=== PATIENT | male | born 1980 | race Caucasian/White ===

== ENCOUNTER 2016-10-28 10:31 | Inpatient (IN) | payer OTHER ==
[2016-10-28 10:56] VITALS: BMI 25.9
--- NOTE | 2016-10-28 14:47 | HP ---
CIWA Score - CIWA Score Nausea/Vomitin Muscle Tremors: 3 Anxiety: 3 Agitation: 2 Paroxysmal Sweats: 1-Minimal Palms Moist Orientation: 0-Oriented Tacttile Disturbances: 2-Mild Itch/Numbness/Burn Auditory Disturbances: 2-Mild Harshness/Frighten Visual Disturbances: 2-Mild Sensitivity Headache: 2-Mild CIWA-Ar Total Score: 20 Admission ROS BHS - HPI Chief Complaint: I NEED HELP TO STOP USING XANAX,COCAINE,MARIJUANA Allergies/Adverse Reactions: Allergies Allergy/AdvReac Type Severity Reaction Status Date / Time No Known Allergies Allergy Verified 10/28/16 12:02 History of Present Illness: THIS 35 YEARS OLD MALE WITH XANAX,COCAINE AND MARIJUANA DEPENDENCE,WITHDRAWAL SYMPTOM,LAST DETOX 2014 MULTIPLE ADMISSIONS TO DETOX ANXIETY AND DEPRESSION LONGEST PERIOD SOBRIETY 7 MONTHS WEIGHT LOSS MMTP 80 MGS/DAY,LAST MEDICATED 10/28/16 Exam Limitations: No Limitations - Ebola screening Have you been sick,other than usual withdrawal symptoms: No - Review of Systems Constitutional: Loss of Appetite, Malaise, Night Sweats, Changes in sleep, Weakness, Unintentional Wgt. Loss EENT: reports: Nose Congestion Respiratory: reports: No Symptoms reported Cardiac: reports: No Symptoms Reported GI: reports: No Symptoms Reported : reports: No Symptoms Reported Musculoskeletal: reports: Back Pain, Muscle Pain Integumentary: reports: Dryness Neuro: reports: Tremors Endocrine: reports: No Symptoms Reported Hematology: reports: No Symptoms Reported Psychiatric: reports: Anxious, Depressed Other Systems: Reviewed and Negative Patient History - Patient Medical History Hx Anemia: No Hx Asthma: No Hx Chronic Obstructive Pulmonary Disease (COPD): No Hx Cancer: No Hx Cardiac Disorders: No Hx Congestive Heart Failure: No Hx Hypertension: Yes (ON MED) Hx Hypercholesterolemia: No Hx Pacemaker: No HX Cerebrovascular Accident: No Hx Seizures: Yes (drug related x3-last episode was in 07/2016) Hx Dementia: No Hx Diabetes: No Hx Gastrointestinal Disorders: No Hx Liver Disease: No Hx Genitourinary Disorders: No Hx Sexually Transmitted Disorders: No Hx Renal Disease (ESRD): No Hx Thyroid Disease: No Hx Human Immunodeficiency Virus (HIV): Yes (positive in 2006 NON COMPLIANCE) Hx Hepatitis C: Yes Hx Depression: Yes (ANXIETY) Hx Suicide Attempt: No Hx Bipolar Disorder: No Hx Schizophrenia: No Other Medical History: NO SUICIDAL,NI HOMICIDAL - Patient Surgical History Past Surgical History: Yes Hx Neurologic Surgery: No Hx Cataract Extraction: No Hx Cardiac Surgery: No Hx Lung Surgery: No Hx Breast Surgery: No Hx Breast Biopsy: No Hx Abdominal Surgery: No Hx Appendectomy: Yes () Hx Cholecystectomy: No Hx Genitourinary Surgery: No Hx Section: No Hx Orthopedic Surgery: No Other Surgical History: 1999-partial thyroidectomy-hyperplasia,hypercalcemia Anesthesia Reaction: No - PPD History Previous Implant?: Yes Documented Results: Positive w/o proof Implanted On Prior [facility] Admission?: Yes Date: 12/16/11 Results: 0 mm - Smoking Cessation Smoking history: Current every day smoker Have you smoked in the past 12 months: Yes Aproximately how many cigarettes per day: 8 Cigars Per Day: 0 Hx Chewing Tobacco Use: No Initiated information on smoking cessation: Yes 'Breaking Loose' booklet given: 10/28/16 - Substance & Tx. History Hx Alcohol Use: No Hx Substance Use: Yes Substance Use Type: Cocaine, Marijuana, Tranquilizers - Substances Abused Cocaine Route: Injection Frequency: 3-6 times per week Amount used: $60 Age of first use: 16 Date of Last Use: 10/27/16 Xanax Route: Oral Frequency: Daily Amount used: 6-8 mg. Age of first use: 18 Date of Last Use: 10/28/16 Marijuana Route: Smoking Frequency: 3-6 times per week Amount used: $10 Age of first use: 13 Date of Last Use: 10/27/16 Family Disease History - Family Disease History Family Disease History: Other: Father (ALCOHOL), Mother (ALCOHOL), Brother ( ALCOHOL), Sister (ALCOHOL) Admission Physical Exam S - Vital Signs Vital Signs: Vital Signs - 24 hr 10/28/16 10:54 Temperature 97.7 F Pulse Rate 84 Respiratory 18 Rate Blood Pressure 134/71 - Physical General Appearance: Yes: Moderate Distress, Tremorous, Irritable, Sweating, Anxious HEENTM: Yes: Within Normal Limits Respiratory: Yes: Lungs Clear Neck: Yes: Within Normal Limits Breast: Yes: Within Normal Limits Cardiology: Yes: Within Normal Limits, Regular Rhythm, Regular Rate, S1, S2 Abdominal: Yes: Normal Bowel Sounds, Non Tender, Flat, Soft, Organomegaly Genitourinary: Yes: Within Normal Limits Back: Yes: Muscle Spasm Musculoskeletal: Yes: Back pain, Muscle Pain Extremities: Yes: Tremors Neurological: Yes: clinical orthoptist II-XII NML intact, Fully Oriented, Alert, Motor Strength 5/5 Integumentary: Yes: Dry, Track [place], Other (CELLULITIS BOTH FOREARMS AND LEGS) Lymphatic: Yes: Within Normal Limits - Diagnostic (1) Uncomplicated sedative, hypnotic or anxiolytic withdrawal Current Visit: Yes Status: Acute (2) Cocaine dependence Current Visit: Yes Status: Acute (3) Cannabis dependence Current Visit: Yes Status: Acute (4) Methadone maintenance therapy patient Current Visit: Yes Status: Acute (5) HIV (human immunodeficiency virus infection) Current Visit: Yes Status: Acute (6) Hepatitis C Current Visit: Yes Status: Acute (7) Anxiety and depression Current Visit: Yes Status: Acute (8) Weight loss Current Visit: Yes Status: Acute (9) Positive PPD, treated Current Visit: Yes Status: Acute Cleared for Admission [facility] - Detox or Rehab [facility] Level of Care: Medically Managed Detox Regimen/Protocol: Valium S Breath Alcohol Content Breath Alcohol Content: 0 Urine Drug Screen - Results Drug Screen Negative: No Urine Drug Screen Results: THC-Marijuana, TEZ-Cocaine, BZO-Benzodiazepines, MTD- Methadone, TCA-Tricyclic Antidepress
[2016-10-28] MEDS ORDERED: NICOTINE POLACRILEX 2 MG GUM BUC PRN (15:02)
[2016-10-28] MEDS ORDERED: MENTHOL/PHENOL 1 EACH UD MM PRN (15:02)
[2016-10-28] MEDS ORDERED: LOPERAMIDE HCL 2 MG CAPSULE PO PRN (15:02)
[2016-10-28] MEDS ORDERED: MAGNESIUM CITRATE 300 ML BOTTLE PO PRN (15:02)
[2016-10-28] MEDS ORDERED: P-EPHED 60MG/TRIPROLIDI 2.5MG TABLET PO PRN (15:02)
[2016-10-28] MEDS ORDERED: guaiFENesin/D-METHORPHAN HB 10 ML UNIT-DOSE CUPS PO PRN (15:02)
[2016-10-28] MEDS ORDERED: MAG HYDROX/AL HYDROX/SIMETH 30 ML UNIT-DOSE CUP PO PRN (15:02)
[2016-10-28] MEDS ORDERED: IBUPROFEN 400 MG TABLET (FP) PO PRN (15:02)
[2016-10-28] MEDS ORDERED: ACETAMINOPHEN 325 MG TABLET (FP) PO PRN (15:02)
[2016-10-28] MEDS ORDERED: hydrOXYzine PAMOATE 50 MG CAPSULE (FP) PO PRN (15:02)
[2016-10-28] MEDS ORDERED: MAGNESIUM HYDROX 2400MG/30ML ORAL SUSPENSION 30 ML CUP PO PRN (15:02)
[2016-10-28] MEDS ORDERED: diazePAM 5 MG TABLET PO ONE (15:26)
[2016-10-28 19:27] LABS: URINE APPEARANCE CLEAR; URINE BILIRUBIN NEGATIVE (NEGATIVE); URINE BLOOD NEGATIVE (NEGATIVE); URINE COLOR LTYELLOW; URINE GLUCOSE (UA) NEGATIVE (NEGATIVE); URINE KETONE NEGATIVE (NEGATIVE); URINE LEUK ESTERASE NEGATIVE (NEGATIVE); URINE NITRITE NEGATIVE (NEGATIVE); URINE PROTEIN NEGATIVE (NEGATIVE); URINE UROBILINOGEN NEGATIVE E.U./dl (0.2-1.0)
[2016-10-28] MEDS: THIAMINE HCL 100 MG TABLET (FP) PO SCH (22:49)
[2016-10-28] MEDS: diazePAM 5 MG TABLET PO SCH (22:49)
[2016-10-28] MEDS: cloNIDine HCL 0.1 MG TABLET PO SCH (22:49)
[2016-10-28] MEDS: diphenhydrAMINE HCL 50 MG CAPSULE PO PRN (22:50)
[2016-10-29] MEDS: diazePAM 5 MG TABLET PO SCH ×3 (05:52→22:59)
[2016-10-29] MEDS ORDERED: TRIMETHOBENZAMIDE HCL 200MG/2ML INJ IM PRN (09:15)
[2016-10-29] MEDS ORDERED: METHADONE HCL 40 MG DISPERSABLE TABLET PO ONE (09:15)
[2016-10-29 09:31] LABS: MCHC 33.8 g/dl (32.0-35.9); MEAN CELL VOLUME 85.7 fl (80-96); MEAN PLT VOLUME 8.4 fl (7.5-11.1); PLATELET COUNT 222 K/MM3 (134-434); WHITE BLOOD COUNT 4.2 K/mm3 (4.0-10.0)
[2016-10-29] MEDS: cloNIDine HCL 0.1 MG TABLET PO SCH ×2 (09:36→22:59)
[2016-10-29] MEDS: PRENATAL VITAMINS W/ FOLIC ACID TABLET (FP) PO SCH (09:36)
[2016-10-29 10:20] LABS: ALBUMIN 4.5 g/dl (3.4-5.0); ALK PHOS 90 U/L (45-117); ANION GAP 9 (8-16); BILIRUBIN,TOTAL 0.3 mg/dL (0.2-1.0); CALCIUM 9.3 mg/dL (8.5-10.1); CO2 28 mmol/L (21-32); CREATININE 1.1 mg/dL (0.7-1.3); GLUCOSE,RANDOM 109 mg/dL (74-106); SGOT/AST 22 U/L (15-37); SGPT/ALT 18 U/L (12-78); TOT PROT 8.3 g/dl (6.4-8.2)
--- NOTE | 2016-10-29 10:38 | CONSULT ---
[facility] Psychiatric Consult - Data Date of interview: 10/29/16 Admission source: [facility] Identifying data: This is a 35 year old single male father of one, resigin in the [facility] and supported on HASA. Substance Abuse History: Patient reports using cocaine IV, xanax 4-6 mg daily, marijuan daily use and on MMTP 80mg. Smokes cigaretted 8 a day. Medical History: HIV+ since 1999, 1999-partial thyroidectomy-hyperplasia, hypercalcemia. Psychiatric History: Patient reports history of anxiety and depression, one psychiatric hospitalization 3 years ago unable recall the name of the hospital, states police took him to the hospital and was admitted for 5 months, treated with seroquel thinks haldol as well and has a reactions. He currently sees at [facility] and on Klonopin and Elavil 50 mg po hs. patient was explained that he will continue only with his Elavil, patient agreed. Physical/Sexual Abuse/Trauma History: denies Mental Status Exam - Mental Status Exam Alert and Oriented to: Time, Place, Person Cognitive Function: Grossly Intact Patient Appearance: Unkempt Mood: Anxious Affect: Appropriate, Mood Congruent Patient Behavior: Appropriate, Cooperative Speech Pattern: Clear, Appropriate Voice Loudness: Normal Thought Process: Intact, Goal Oriented Thought Disorder: Not Present Hallucinations: Denies Suicidal Ideation: Denies Homicidal Ideation: Denies Insight/Judgement: Fair Sleep: Fair Appetite: Fair Muscle strength/Tone: Normal Gait/Station: Normal Psychiatric Findings - Problem List ([place] 1, 2,3) (1) Anxiety and depression Current Visit: Yes Status: Acute - Initial Treatment Plan Initial Treatment Plan: will continue Elavil 50 mg po hs.
--- NOTE | 2016-10-29 10:38 | EKG ---
Test Reason : Blood Pressure : / mmHG Vent. Rate : 060 BPM Atrial Rate : 060 BPM P-R Int : 150 ms QRS Dur : 102 ms QT Int : 428 ms P-R-T Axes : 048 075 056 degrees QTc Int : 428 ms NORMAL SINUS RHYTHM NORMAL ECG NO PREVIOUS ECGS AVAILABLE Confirmed by JAIDEN FARR MD ([id number]) on 10/29/2016 10:37:53 AM Referred By: Confirmed By:JAIDEN FARR MD
--- NOTE | 2016-10-29 11:19 | PN ---
[facility] CIWA - CIWA Score Nausea/Vomitin-No Nausea/No Vomiting Muscle Tremors: 4-Moderate,w/Arms Extend Anxiety: 6 Agitation: 5 Paroxysmal Sweats: 1-Minimal Palms Moist Orientation: 0-Oriented Tacttile Disturbances: 3-Moderate Itch/Numb/Burn Auditory Disturbances: 0-None Visual Disturbances: 0-None Headache: 0-None Present CIWA-Ar Total Score: 19 BHS Progress Note (SOAP) Subjective: ANXIETY,TREMORS,NAUSEA,VOMITING,RESTLESSNESS,INTERMITTENT SLEEP Objective: 10/29/16 11:18 Vital Signs Temperature 96.7 F L 10/29/16 10:24 Pulse Rate 70 10/29/16 10:24 Respiratory Rate 16 10/29/16 10:24 Blood Pressure 123/88 10/29/16 10:24 O2 Sat by Pulse Oximetry (%) Laboratory Last Values WBC 4.2 K/mm3 (4.0-10.0) D 10/29/16 05:30 RBC 4.11 M/mm3 (4.00-5.60) 10/29/16 05:30 Hgb 11.9 GM/dL (11.7-16.9) 10/29/16 05:30 Hct 35.3 % (35.4-49) L 10/29/16 05:30 MCV 85.7 fl (80-96) 10/29/16 05:30 MCHC 33.8 g/dl (32.0-35.9) 10/29/16 05:30 RDW 15.0 % (11.9-15.9) D 10/29/16 05:30 Plt Count 222 K/MM3 (134-434) 10/29/16 05:30 MPV 8.4 fl (7.5-11.1) 10/29/16 05:30 Sodium 139 mmol/L (136-145) 10/29/16 05:30 Potassium 3.9 mmol/L (3.5-5.1) 10/29/16 05:30 Chloride 102 mmol/L (98-107) 10/29/16 05:30 Carbon Dioxide 28 mmol/L (21-32) 10/29/16 05:30 Anion Gap 9 (8-16) 10/29/16 05:30 BUN 12 mg/dL (7-18) 10/29/16 05:30 Creatinine 1.1 mg/dL (0.7-1.3) D 10/29/16 05:30 Creat Clearance w eGFR > 60 (>60) 10/29/16 05:30 Random Glucose 109 mg/dL (74-106) H D 10/29/16 05:30 Calcium 9.3 mg/dL (8.5-10.1) 10/29/16 05:30 Total Bilirubin 0.3 mg/dL (0.2-1.0) D 10/29/16 05:30 AST 22 U/L (15-37) 10/29/16 05:30 ALT 18 U/L (12-78) 10/29/16 05:30 Alkaline Phosphatase 90 U/L (45-117) D 10/29/16 05:30 Total Protein 8.3 g/dl (6.4-8.2) H 10/29/16 05:30 Albumin 4.5 g/dl (3.4-5.0) D 10/29/16 05:30 Urine Color Ltyellow 10/28/16 13:00 Urine Appearance Clear 10/28/16 13:00 Urine pH 7.0 (5.0-8.0) D 10/28/16 13:00 Ur Specific [place] 1.013 (1.001-1.035) 10/28/16 13:00 Urine Protein Negative (NEGATIVE) 10/28/16 13:00 Urine Glucose (UA) Negative (NEGATIVE) 10/28/16 13:00 Urine Ketones Negative (NEGATIVE) 10/28/16 13:00 Urine Blood Negative (NEGATIVE) 10/28/16 13:00 Urine Nitrite Negative (NEGATIVE) 10/28/16 13:00 Urine Bilirubin Negative (NEGATIVE) 10/28/16 13:00 Urine Urobilinogen Negative E.U./dl (0.2-1.0) 10/28/16 13:00 Ur Leukocyte Esterase Negative (NEGATIVE) 10/28/16 13:00 Assessment: 10/29/16 11:18 WITHDRAWAL SX Plan: CONTINUE DETO TIGAN 200 MG IM Q6H PRN
[2016-10-29] MEDS: diazePAM 5 MG TABLET PO PRN (18:27)
[2016-10-29] MEDS ORDERED: diphenhydrAMINE HCL 25 MG CAPSULE (FP) PO PRN (19:22)
[2016-10-29] MEDS ORDERED: BACITRACIN 30 GM TUBE TOPICAL OINTMENT TP SCH (22:00)
[2016-10-29] MEDS: THIAMINE HCL 100 MG TABLET (FP) PO SCH (22:58)
[2016-10-29] MEDS: SULFAMETHOXAZOLE/TRIMETHOPRIM 800MG/160MG D.S. TABLET PO SCH (22:59)
[2016-10-29] MEDS: AMITRIPTYLINE HCL 25 MG TABLET (FP) PO SCH (22:59)
[2016-10-29] MEDS: BACITRACIN 0.9 GM PACKET TP SCH (23:17)
[2016-10-30] MEDS: diazePAM 5 MG TABLET PO PRN (05:26)
[2016-10-30] MEDS: METHADONE HCL 40 MG DISPERSABLE TABLET PO SCH (05:26)
[2016-10-30] MEDS: PRENATAL VITAMINS W/ FOLIC ACID TABLET (FP) PO SCH (10:12)
[2016-10-30] MEDS: cloNIDine HCL 0.1 MG TABLET PO SCH ×2 (10:12→22:14)
[2016-10-30] MEDS: BACITRACIN 0.9 GM PACKET TP SCH ×2 (10:12→22:13)
[2016-10-30] MEDS: diazePAM 5 MG TABLET PO SCH ×2 (10:12→22:14)
[2016-10-30] MEDS: SULFAMETHOXAZOLE/TRIMETHOPRIM 800MG/160MG D.S. TABLET PO SCH ×2 (10:13→22:14)
--- NOTE | 2016-10-30 11:21 | PN ---
[facility] CIWA - CIWA Score Nausea/Vomitin-No Nausea/No Vomiting Muscle Tremors: 4-Moderate,w/Arms Extend Anxiety: 5 Agitation: 4-Moderately Restless Paroxysmal Sweats: 1-Minimal Palms Moist Orientation: 0-Oriented Tacttile Disturbances: 3-Moderate Itch/Numb/Burn Auditory Disturbances: 0-None Visual Disturbances: 0-None Headache: 0-None Present CIWA-Ar Total Score: 17 S Progress Note (SOAP) Subjective: ANXIETY,TREMORS, SWEATS,INTERMITTENT SLEEP. Objective: 10/30/16 11:24 Vital Signs Temperature 97.2 F L 10/30/16 10:45 Pulse Rate 73 10/30/16 10:45 Respiratory Rate 16 10/30/16 10:45 Blood Pressure 103/66 10/30/16 10:45 O2 Sat by Pulse Oximetry (%) Laboratory Last Values WBC 4.2 K/mm3 (4.0-10.0) D 10/29/16 05:30 RBC 4.11 M/mm3 (4.00-5.60) 10/29/16 05:30 Hgb 11.9 GM/dL (11.7-16.9) 10/29/16 05:30 Hct 35.3 % (35.4-49) L 10/29/16 05:30 MCV 85.7 fl (80-96) 10/29/16 05:30 MCHC 33.8 g/dl (32.0-35.9) 10/29/16 05:30 RDW 15.0 % (11.9-15.9) D 10/29/16 05:30 Plt Count 222 K/MM3 (134-434) 10/29/16 05:30 MPV 8.4 fl (7.5-11.1) 10/29/16 05:30 Sodium 139 mmol/L (136-145) 10/29/16 05:30 Potassium 3.9 mmol/L (3.5-5.1) 10/29/16 05:30 Chloride 102 mmol/L (98-107) 10/29/16 05:30 Carbon Dioxide 28 mmol/L (21-32) 10/29/16 05:30 Anion Gap 9 (8-16) 10/29/16 05:30 BUN 12 mg/dL (7-18) 10/29/16 05:30 Creatinine 1.1 mg/dL (0.7-1.3) D 10/29/16 05:30 Creat Clearance w eGFR > 60 (>60) 10/29/16 05:30 Random Glucose 109 mg/dL (74-106) H D 10/29/16 05:30 Calcium 9.3 mg/dL (8.5-10.1) 10/29/16 05:30 Total Bilirubin 0.3 mg/dL (0.2-1.0) D 10/29/16 05:30 AST 22 U/L (15-37) 10/29/16 05:30 ALT 18 U/L (12-78) 10/29/16 05:30 Alkaline Phosphatase 90 U/L (45-117) D 10/29/16 05:30 Total Protein 8.3 g/dl (6.4-8.2) H 10/29/16 05:30 Albumin 4.5 g/dl (3.4-5.0) D 10/29/16 05:30 Urine Color Ltyellow 10/28/16 13:00 Urine Appearance Clear 10/28/16 13:00 Urine pH 7.0 (5.0-8.0) D 10/28/16 13:00 Ur Specific [place] 1.013 (1.001-1.035) 10/28/16 13:00 Urine Protein Negative (NEGATIVE) 10/28/16 13:00 Urine Glucose (UA) Negative (NEGATIVE) 10/28/16 13:00 Urine Ketones Negative (NEGATIVE) 10/28/16 13:00 Urine Blood Negative (NEGATIVE) 10/28/16 13:00 Urine Nitrite Negative (NEGATIVE) 10/28/16 13:00 Urine Bilirubin Negative (NEGATIVE) 10/28/16 13:00 Urine Urobilinogen Negative E.U./dl (0.2-1.0) 10/28/16 13:00 Ur Leukocyte Esterase Negative (NEGATIVE) 10/28/16 13:00 RPR Titer Nonreactive (NONREACTIVE) 10/29/16 05:30 Assessment: 10/30/16 11:24 WITHDRAWAL SX Plan: CONTINUE DETOX
[2016-10-30 21:16] LABS: URINE APPEARANCE SLCLOUDY; URINE BILIRUBIN NEGATIVE (NEGATIVE); URINE BLOOD NEGATIVE (NEGATIVE); URINE COLOR YELLOW; URINE GLUCOSE (UA) NEGATIVE (NEGATIVE); URINE KETONE NEGATIVE (NEGATIVE); URINE LEUK ESTERASE NEGATIVE (NEGATIVE); URINE NITRITE NEGATIVE (NEGATIVE); URINE PROTEIN NEGATIVE (NEGATIVE); URINE UROBILINOGEN 2.0 E.U/dl E.U./dl (0.2-1.0)
[2016-10-30] MEDS: THIAMINE HCL 100 MG TABLET (FP) PO SCH (22:13)
[2016-10-30] MEDS: AMITRIPTYLINE HCL 25 MG TABLET (FP) PO SCH (22:13)
[2016-10-30] MEDS: diphenhydrAMINE HCL 50 MG CAPSULE PO PRN (22:13)
[2016-10-31] MEDS: METHADONE HCL 40 MG DISPERSABLE TABLET PO SCH (05:45)
[2016-10-31] MEDS: diazePAM 5 MG TABLET PO PRN (05:47)
[2016-10-31] MEDS: BACITRACIN 0.9 GM PACKET TP SCH ×2 (10:19→22:28)
[2016-10-31] MEDS: SULFAMETHOXAZOLE/TRIMETHOPRIM 800MG/160MG D.S. TABLET PO SCH ×2 (10:19→22:28)
[2016-10-31] MEDS: PRENATAL VITAMINS W/ FOLIC ACID TABLET (FP) PO SCH (10:19)
[2016-10-31] MEDS: cloNIDine HCL 0.1 MG TABLET PO SCH ×2 (10:19→22:28)
[2016-10-31] MEDS: diazePAM 5 MG TABLET PO SCH ×2 (10:19→22:28)
--- NOTE | 2016-10-31 10:19 | PN ---
BHS Progress Note (SOAP) Subjective: sweating,interrupted sleep,restless Objective: 10/31/16 10:17 Vital Signs - 8 hr 10/31/16 10/31/16 10/31/16 03:45 07:09 09:42 Temperature 96.6 F L 96.1 F L Pulse Rate 68 80 Respiratory 18 16 18 Rate Blood Pressure 110/73 110/67 Laboratory Tests 10/28/16 10/29/16 10/29/16 13:00 05:30 05:30 WBC 4.2 D RBC 4.11 Hgb 11.9 Hct 35.3 L MCV 85.7 MCHC 33.8 RDW 15.0 D Plt Count 222 MPV 8.4 Sodium 139 Potassium 3.9 Chloride 102 Carbon Dioxide 28 Anion Gap 9 BUN 12 Creatinine 1.1 D Creat Clearance w eGFR > 60 Random Glucose 109 H D Calcium 9.3 Total Bilirubin 0.3 D AST 22 ALT 18 Alkaline Phosphatase 90 D Total Protein 8.3 H Albumin 4.5 D Urine Color Ltyellow Urine Appearance Clear Urine pH 7.0 D Ur Specific [place] 1.013 Urine Protein Negative Urine Glucose (UA) Negative Urine Ketones Negative Urine Blood Negative Urine Nitrite Negative Urine Bilirubin Negative Urine Urobilinogen Negative Ur Leukocyte Esterase Negative RPR Titer 10/29/16 10/30/16 05:30 14:58 WBC RBC Hgb Hct MCV MCHC RDW Plt Count MPV Sodium Potassium Chloride Carbon Dioxide Anion Gap BUN Creatinine Creat Clearance w eGFR Random Glucose Calcium Total Bilirubin AST ALT Alkaline Phosphatase Total Protein Albumin Urine Color Yellow Urine Appearance Slcloudy Urine pH 6.0 Ur Specific [place] 1.028 Urine Protein Negative Urine Glucose (UA) Negative Urine Ketones Negative Urine Blood Negative Urine Nitrite Negative Urine Bilirubin Negative Urine Urobilinogen 2.0 e.u/dl Ur Leukocyte Esterase Negative RPR Titer Nonreactive labs noted Assessment: 10/31/16 10:19 withdrawal sx. Plan: continue detox
[2016-10-31] MEDS: AMITRIPTYLINE HCL 25 MG TABLET (FP) PO SCH (22:28)
[2016-10-31] MEDS: diphenhydrAMINE HCL 50 MG CAPSULE PO PRN (22:29)
[2016-10-31] MEDS: THIAMINE HCL 100 MG TABLET (FP) PO SCH (22:50)
[2016-11-01] MEDS: METHADONE HCL 40 MG DISPERSABLE TABLET PO SCH (05:48)
[2016-11-01 06:33] VITALS: BP 104/69; PULSE 79; TEMP 97.9
[2016-11-01] MEDS: cloNIDine HCL 0.1 MG TABLET PO SCH (09:23)
[2016-11-01] MEDS: SULFAMETHOXAZOLE/TRIMETHOPRIM 800MG/160MG D.S. TABLET PO SCH (09:23)
[2016-11-01] MEDS: PRENATAL VITAMINS W/ FOLIC ACID TABLET (FP) PO SCH (09:23)
[2016-11-01] MEDS ORDERED: diazePAM 5 MG TABLET PO SCH (10:00)
--- NOTE | 2016-11-01 12:34 | DS ---
[facility] Detox Discharge Summary Admission Date: 10/28/16 Discharge Date: 11/01/16 - History Present History: Cocaine Dependence, Sedative Dependence, MMTP Pertinent Past History: Hepatitis C, HTN, Drug related seizure disorder, HIV - Physical Exam Results Vital Signs: Vital Signs Temperature 97.9 F 11/01/16 06:32 Pulse Rate 79 11/01/16 06:32 Respiratory Rate 16 11/01/16 06:32 Blood Pressure 104/69 11/01/16 06:32 O2 Sat by Pulse Oximetry (%) Pertinent Admission Physical Exam Findings: Withdrawal symptoms Laboratory Tests 10/28/16 10/29/16 10/29/16 13:00 05:30 05:30 WBC 4.2 D RBC 4.11 Hgb 11.9 Hct 35.3 L MCV 85.7 MCHC 33.8 RDW 15.0 D Plt Count 222 MPV 8.4 Sodium 139 Potassium 3.9 Chloride 102 Carbon Dioxide 28 Anion Gap 9 BUN 12 Creatinine 1.1 D Creat Clearance w eGFR > 60 Random Glucose 109 H D Calcium 9.3 Total Bilirubin 0.3 D AST 22 ALT 18 Alkaline Phosphatase 90 D Total Protein 8.3 H Albumin 4.5 D Urine Color Ltyellow Urine Appearance Clear Urine pH 7.0 D Ur Specific [place] 1.013 Urine Protein Negative Urine Glucose (UA) Negative Urine Ketones Negative Urine Blood Negative Urine Nitrite Negative Urine Bilirubin Negative Urine Urobilinogen Negative Ur Leukocyte Esterase Negative RPR Titer 10/29/16 10/30/16 05:30 14:58 WBC RBC Hgb Hct MCV MCHC RDW Plt Count MPV Sodium Potassium Chloride Carbon Dioxide Anion Gap BUN Creatinine Creat Clearance w eGFR Random Glucose Calcium Total Bilirubin AST ALT Alkaline Phosphatase Total Protein Albumin Urine Color Yellow Urine Appearance Slcloudy Urine pH 6.0 Ur Specific [place] 1.028 Urine Protein Negative Urine Glucose (UA) Negative Urine Ketones Negative Urine Blood Negative Urine Nitrite Negative Urine Bilirubin Negative Urine Urobilinogen 2.0 e.u/dl Ur Leukocyte Esterase Negative RPR Titer Nonreactive Labs noted - Treatment Hospital Course: Detox Protocol Followed, Detoxed Safely, Responded well, Discharged Condition Good - Medication Discharge Medications: Ambulatory Orders Amitriptyline HCl [Elavil -] 50 mg PO HS 10/28/16 Clonidine HCl [Catapres -] 0.1 mg PO BID 10/28/16 Amitriptyline HCl [Elavil -] 50 mg PO HS #30 tablet 10/29/16 - Diagnosis (1) Anxiety and depression Status: Chronic (2) Cannabis dependence Status: Chronic (3) Cocaine dependence Status: Chronic (4) Hepatitis C Status: Chronic (5) Hypertension Status: Chronic (6) Methadone maintenance therapy patient Status: Chronic (7) Nicotine dependence Status: Chronic (8) HIV (human immunodeficiency virus infection) Status: Chronic (9) Uncomplicated sedative, hypnotic or anxiolytic withdrawal Status: Acute - AMA Did Patient Leave Against Medical Advice: No
== END 2016-11-01 09:37 | disposition home or self-care (01) | DRG 773 ==
LOC: YASAS 10:31 → Y3N 13:24
PROVIDERS: ADMIT Internal Medicine; ATTEND Internal Medicine
PROC: HZ2ZZZZ Detoxification Services for Substance Abuse Treatment (ICD-10-PCS; principal; 2016-11-01)
DX: F11.20 Opioid dependence, uncomplicated (principal); F10.230 Alcohol dependence with withdrawal, uncomplicated; F14.20 Cocaine dependence, uncomplicated; F12.20 Cannabis dependence, uncomplicated; F17.210 Nicotine dependence, cigarettes, uncomplicated; F41.8 Other specified anxiety disorders; I10 Essential (primary) hypertension; B18.2 Chronic viral hepatitis C; Z21 Asymptomatic human immunodeficiency virus [HIV] infection status; Z59.0 Homelessness
CPT/HCPCS: 36415; 71020-TC; 80053; 81003; 85027; 86593; 93005; 93010